=== PATIENT | female | born 1985 | race African-American/Black ===

== ENCOUNTER 2020-10-08 13:51 | Emergency (ER) | payer OTHER ==
[~2020-10-08] VITALS: Ht 162.6 cm; Wt 72.6 kg
[2020-10-08 13:51] VITALS: TEMP 98.6
[2020-10-08 15:37] VITALS: BP 127/81
== END 2020-10-08 15:37 | disposition home or self-care (01) ==
LOC: ED 13:51
DX: S16.1XXA Strain of muscle, fascia and tendon at neck level, initial encounter (principal); S39.012A Strain of muscle, fascia and tendon of lower back, initial encounter; S40.011A Contusion of right shoulder, initial encounter; S80.01XA Contusion of right knee, initial encounter; V89.2XXA Person injured in unspecified motor-vehicle accident, traffic, initial encounter; Y92.89 Other specified places as the place of occurrence of the external cause
CPT/HCPCS: 96372; 99283; J1885; Q9963